=== PATIENT | male | born 1945 | race Caucasian/White ===

== ENCOUNTER 2025-02-28 14:45 | Inpatient (IN) | payer MEDICARE ==
[~2025-02-28] VITALS: Ht 188 cm; Wt 123.9 kg
[2025-02-28] MEDS ORDERED: MAGN400C2 PO (14:57)
[2025-02-28] MEDS ORDERED: B-122500 PO (14:57)
[2025-02-28] MEDS ORDERED: GABA-1172 PO (14:57)
[2025-02-28] MEDS ORDERED: ZOLO50TA PO (14:57)
[2025-02-28] MEDS ORDERED: MYRB50TA PO (14:57)
[2025-02-28] MEDS ORDERED: MELA5TAB21 PO (14:57)
[2025-02-28] MEDS ORDERED: AMLO25TA PO (14:57)
[2025-02-28] MEDS ORDERED: OMEP40CA4 PO (14:57)
[2025-02-28] MEDS ORDERED: ATOR1TAB19 PO (14:57)
[2025-02-28] MEDS ORDERED: LISI40TA10 PO (14:57)
[2025-02-28 15:35] LABS: KETONE, URINE AUTO RFX NEGATIVE (NEGATIVE); NITRITE, URINE AUTO RFX NEGATIVE (NEGATIVE); RBC, URINE AUTO RFX 88 /HPF (0-3); SQUAM EPITHELIAL CELL UR AURFX 0 /HPF (0-6); TRANSITIONAL EPITHELIAL AU RFX <1 /HPF
[2025-02-28 15:37] LABS: LEUKOCYTE ESTERASE UR AUTO RFX 1+ (NEGATIVE); WBC, URINE AUTO RFX 43 /HPF (0-3)
[2025-02-28] MEDS: ACETAMINOPHEN 325 MG TAB PO ONE (15:40)
[2025-02-28] MEDS: cefTRIAXone SOD 2 GM in DEXTROSE 5% (D5W) ADV/MINI-BAG 50 ML IV ONE (15:40)
[2025-02-28 15:51] LABS: BASO # 0.1 10^3/uL (0.0-0.2); BASO % 0.3 % (0.0-1.0); EOS # 0.1 10^3/uL (0.0-0.5); EOS % 0.6 % (0.0-3.0); LYMPH # 1.2 10^3/uL (1.5-5.0); LYMPH % 7.9 % (24.0-44.0); MONO # 2.3 10^3/uL (0.0-0.8); MONO % 15.3 % (2.0-8.0); NEUTROPHILS # 11.3 10^3/uL (1.5-8.5); NEUTROPHILS % 75.1 % (36.0-66.0); PLATELET COUNT, AUTOMATED 209 10^3/uL (150-450)
[2025-02-28] MEDS: METOPROLOL 5 MG/5 ML VIAL IV STA (16:04)
[2025-02-28] MEDS: NS (Normal Saline) 0.9% 1,000 ML IV SCH ×2 (16:05→19:53)
[2025-02-28 16:22] LABS: ALT/SGPT 23.0 U/L (7.0-40); AST/SGOT 23.0 U/L (<34); CALCIUM LEVEL 9.0 MG/DL (8.3-10.6); CARBON DIOXIDE LEVEL 26.0 MMOL/L (20-31); CHLORIDE LEVEL 99.0 MMOL/L (98-107); CK-MB VALUE MASS 1.1 NG/ML (<3.6); CREATININE FOR GFR 0.92 MG/DL (0.70-1.30); GLOMERULAR FILTRATION RATE 85.7 (>42); POTASSIUM SERUM 4.4 MMOL/L (3.5-5.1); SODIUM LEVEL 136.0 MMOL/L (136-145)
[2025-02-28 16:24] LABS: FREE T4 0.94 NG/DL (0.89-1.76)
[2025-02-28 16:27] LABS: CPK CREATINE PHOSPHOKINASE 107.0 U/L (46-171); MB/CK RELATIVE INDEX 1.02 (< OR =4)
[2025-02-28] MEDS ORDERED: FLON1SPR (16:53)
[2025-02-28] MEDS ORDERED: ALFU10TA23 PO (16:53)
[2025-02-28] MEDS ORDERED: HOME MED LIST COMPLETE! XX SCH (16:55)
[2025-02-28 17:16] LABS: CK-MB VALUE MASS < 1.0 NG/ML (<3.6)
[2025-02-28 17:17] LABS: CPK CREATINE PHOSPHOKINASE 112 U/L (46-171)
[2025-02-28] MEDS ORDERED: RAMELTEON 8 MG TAB PO PRN (18:05)
[2025-02-28] MEDS ORDERED: SODIUM CHLORIDE 0.9% 1000 ML IV SCH (18:05)
[2025-02-28] MEDS ORDERED: ISOVUE-370 76% 100 ML VIAL As Ordered ONE (18:18)
[2025-02-28 20:10] VITALS: BP 125/77; TEMP 97.3; O2SAT 100
[2025-02-28] MEDS: METOPROLOL TART 25 MG TABLET PO SCH (20:38)
[2025-02-28] MEDS: APIXABAN 5 MG TAB PO SCH (20:38)
[2025-02-28] MEDS: GABAPENTIN 300 MG CAP PO SCH (20:38)
[2025-03-01] VITALS (9 sets, daily range): BP systolic 112–127; BP diastolic 56–71; TEMP 97.4–101.9; O2SAT 92–97
[2025-03-01] MEDS: ACETAMINOPHEN 325 MG TAB PO PRN (00:52)
[2025-03-01 06:50] LABS: PLATELET COUNT, AUTOMATED 160 10^3/uL (150-450)
[2025-03-01 07:38] LABS: CALCIUM LEVEL 8.8 MG/DL (8.3-10.6); CHLORIDE LEVEL 103 MMOL/L (98-107); CREATININE FOR GFR 0.75 MG/DL (0.70-1.30); GLOMERULAR FILTRATION RATE > 90.0 (>42); POTASSIUM SERUM 4.1 MMOL/L (3.5-5.1); SODIUM LEVEL 141 MMOL/L (136-145)
[2025-03-01 07:54] LABS: CARBON DIOXIDE LEVEL 28 MMOL/L (20-31)
[2025-03-01] MEDS: TAMSULOSIN 0.4 MG CAP PO SCH (08:24)
[2025-03-01] MEDS: ATORVASTATIN 10 MG TAB PO SCH (08:25)
[2025-03-01] MEDS: OMEPRAZOLE 20MG CAP PO SCH (08:25)
[2025-03-01] MEDS: CYANOCOBALAMIN 500 MCG TAB PO SCH (08:26)
[2025-03-01] MEDS: SERTRALINE HCL 50 MG TAB PO SCH (08:27)
[2025-03-01] MEDS ORDERED: MIRABEGRON 50 MG PO SCH (09:00)
[2025-03-01] MEDS ORDERED: ELIQ5TAB PO (10:29)
[2025-03-01 12:21] LABS: MAGNESIUM LEVEL 1.7 MG/DL (1.8-2.4)
[2025-03-01] MEDS: MAG SULF 1GM/100ML (MAG RUN) 1 GM in IV 1 EA IV SCH (13:28)
[2025-03-01] MEDS: cefTRIAXone SOD 2 GM in DEXTROSE 5% (D5W) ADV/MINI-BAG 50 ML IV SCH (15:29)
[2025-03-01] MEDS: GABAPENTIN 300 MG CAP PO SCH (15:29)
[2025-03-02] VITALS: BP 118/57; TEMP 98.6; O2SAT 96
[2025-03-02 04:07] VITALS: BP 126/76; TEMP 96.8; O2SAT 94
[2025-03-02 06:52] LABS: BASO # 0.0 10^3/uL (0.0-0.2); BASO % 0.5 % (0.0-1.0); EOS # 0.1 10^3/uL (0.0-0.5); EOS % 1.5 % (0.0-3.0); LYMPH # 1.2 10^3/uL (1.5-5.0); LYMPH % 14.4 % (24.0-44.0); MONO # 1.6 10^3/uL (0.0-0.8); MONO % 20.0 % (2.0-8.0); NEUTROPHILS # 5.2 10^3/uL (1.5-8.5); NEUTROPHILS % 63.0 % (36.0-66.0); PLATELET COUNT, AUTOMATED 163 10^3/uL (150-450)
[2025-03-02 07:16] LABS: CALCIUM LEVEL 9.4 MG/DL (8.3-10.6); CARBON DIOXIDE LEVEL 29 MMOL/L (20-31); CHLORIDE LEVEL 102 MMOL/L (98-107); CREATININE FOR GFR 0.74 MG/DL (0.70-1.30); GLOMERULAR FILTRATION RATE > 90.0 (>42); MAGNESIUM LEVEL 1.8 MG/DL (1.8-2.4); POTASSIUM SERUM 4.1 MMOL/L (3.5-5.1); SODIUM LEVEL 140 MMOL/L (136-145)
[2025-03-02 07:48] VITALS: BP 132/67; TEMP 97; O2SAT 94
[2025-03-02] MEDS: MAG SULF 1GM/100ML (MAG RUN) 1 GM in IV 1 EA IV ONE (09:10)
[2025-03-02 09:12] VITALS: BP 118/65
[2025-03-02] MEDS ORDERED: LISI20TA33 PO (09:42)
[2025-03-02] MEDS ORDERED: LEVO1TAB40 PO (09:42)
[2025-03-02] MEDS ORDERED: METO25TA4 PO (09:42)
== END 2025-03-02 11:18 | disposition home or self-care (01) | DRG 872 ==
LOC: M ED 14:45 → M ED INP 18:04 → M PCU 20:09
PROVIDERS: ADMIT Internal Medicine; ATTEND Internal Medicine
DX: A41.9 Sepsis, unspecified organism (principal); N10 Acute pyelonephritis; I48.91 Unspecified atrial fibrillation; Z85.46 Personal history of malignant neoplasm of prostate; E78.5 Hyperlipidemia, unspecified; K21.9 Gastro-esophageal reflux disease without esophagitis; F32.A Depression, unspecified; I73.9 Peripheral vascular disease, unspecified; G47.33 Obstructive sleep apnea (adult) (pediatric); I10 Essential (primary) hypertension; N40.0 Benign prostatic hyperplasia without lower urinary tract symptoms; Z96.653 Presence of artificial knee joint, bilateral; Z79.899 Other long term (current) drug therapy